=== PATIENT | female | born 1980 | race Caucasian/White ===

== ENCOUNTER → 2022-03-02 14:59 | Outpatient (BNVA) | payer SELFPAY | PROVIDERS: Visit Provider Family Medicine | DX: M17.11 Unilateral primary osteoarthritis, right knee (principal); S89.82XA Other specified injuries of left lower leg, initial encounter; W19.XXXA Unspecified fall, initial encounter | CPT/HCPCS: 73562 ==

== ENCOUNTER 2023-11-23 21:40 | Emergency (ER) | payer SELFPAY ==
[2023-11-23 21:43] VITALS: BP 149/106; PULSE 67; RESP 16; TEMP 36.4; O2SAT 96; BMI 28.2
--- NOTE | 2023-11-23 21:50 | ED_ITS ---
<Statement entered by Az Lucas MD - 11/24/23 05:46> Chart reviewed and discussed with midlevel provider. I agree with the assessment and plan. HPI - Extremity Problem General: Chief complaint: Extremity Injury, Upper Stated complaint: Rt Arm Injury Time Seen by Provider: 11/23/23 21:50 History of Present Illness: 43-year-old female comes in today with i njury to the right wrist. Patient reports that she fell forward and caught herself when she tripped over her cat. Patient reports pain to the anterior wrist with minimal movement due to pain. Cap refill and sensation is normal distally. Patient has normal range of motion of the digits. Review of Systems General: Reports: 10 or more systems reviewed and unremarkable except in HPI and below PFSH ED PFSH: Family History (Updated 03/02/22 @ 14:11 by Nereida Garcia LPN) Family/Other Cancer Maternal aunt--breast Family/Other Cancer Paternal side--colon Denies family history of Diabetes CAD (coronary artery disease) Clotting disorder Dementia Hyperlipidemia Psychiatric illness Chronic kidney disease (CKD) Anesthesia complication Bleeding disorder Lung disease Hypertension Stroke Social History (Updated 03/02/22 @ 14:26 by Julio Chandra MD) Smoking and tobacco/nicotine status: current every day tobacco/nicotine user cigarettes Packs smoked per day: 1 Years cigarettes smoked: 25 [ Other cigarette details: 1PPD, 25yrs, ] Alcohol intake: never Substance/Drug Use: never Adopted: No Caregiver/support person: No Lives independently: Yes Household members: spouse and children Marital status: Number of children: 2 Current occupational status: employed Current occupation: Car wash attendent Current gender identity: Female Special aaliyah needs: No Agree to transfusion: Yes Female Reproductive History: Date of last menstrual period: 11/23/23 Para: 2 Physical Exam Const: COMMON NORMALS: alert HENMT: COMMON NORMALS: normocephalic HEAD & SCALP: normocephalic Neck/C-Spine: COMMON NORMALS: full ROM Resp: COMMON NORMALS: normal respiratory effort and clear to auscultation bilaterally AUSCULTATION: clear to auscultation bilaterally Cardio: COMMON NORMALS: regular rate RATE: regular rate GI: COMMON NORMALS: Soft to palpation PALPATION: Yes Soft to palpation Back/Pelvis: COMMON NORMALS: thoracic and lumbar spine normal to inspection Extremity: RIGHT UPPER EXTREMITY: Yes wrist (Decreased range of motion, minimal swelling) Right wrist: Yes inspection, Yes palpation (Mild tenderness), Yes ROM (Increased pain with movement) and Yes neurovascular exam Neuro: SENSORIUM/ORIENTATION: Yes alert Skin: COMMON NORMALS: turgor normal GENERAL SKIN EXAM: turgor normal Course Vital Signs: Vital signs: Vital Signs Temperature 97.6 F 11/23/23 21:43 Pulse Rate 67 11/23/23 21:43 Respiratory Rate 16 11/23/23 21:43 Blood Pressure 149/106 11/23/23 21:43 Pulse Oximetry 96 11/23/23 21:43 Oxygen Delivery Me thod Room Air 11/23/23 21:43 MDM - Extremity (Nontraumatic) Medical Decision Making 43-year-old female comes in today with complaints of right wrist pain after falling. On exam patient has some tenderness and decreased range of motion of the right wrist due to pain. Minimal swelling. Distal cap refill and sensation is intact. Differential includes fracture, sprain, dislocation. X-ray noted no acute fractures or subluxations of the elbow, wrist noted no acute fractures but with negative ulnar variance with an apparent anterior subluxation of the lunate. I reviewed this with Dr. Lucas, attending ER physician, he reviewed the x-rays and agreeed with splinting and following up with orthopedics. Reviewed this with patient who agreed with plan. Lab Data Radiology Impressions Elbow X-Ray 11/23/23 21:53 IMPRESSION: No acute fractures or subluxations. Wrist X-Ray 11/23/23 21:53 IMPRESSION: No acute fractures. Negative ulnar variance with apparent anterior subluxation of the lunate. All radiology interpretation(s) finalized by discharge Discharge Plan Discharge Patient Disposition: Home Clinical Impression: Sprain of right wrist Qualifiers: Encounter type: initial encounter Qualified Code(s): S63.501A - Unspecified sprain of right wrist, initial encounter Condition: Stable Prescriptions: No Action Vicks Nyquil Nighttime Relief 6.25-15-325 mg/15 mL liquid PO bupropion HCl [Wellbutrin XL] 300 mg tablet extended release 24 hr 300 mg PO QAM Qty: 30 0RF Rx Instructions: 1/2 tablet for 5 days then full tablet meloxicam 7.5 mg tablet 7.5 mg PO DAILY Qty: 90 1RF Discharge Orders: Discharge ED (Routine); Ordered 11/23/23 Ordered By: Juan José Cadena Discharge Diet: Usual diet Discharge Activity: Increase activity as tolerated Patient Instructions: Sprain (ED) Activity Restrictions/Additional Instructions: Keep splint clean and dry. Limit activity to the extremity. Use acetaminophen and ibuprofen to help with pain. Use ice packs for further pain relief. Follow-up with orthopedics office for further evaluation and treatment. Case management should contact you regarding follow-up appointment. Coding Level of Care Code ED [employer] for [employer] [place]
--- NOTE | 2023-11-23 21:53 | XRR_ITS ---
PROCEDURE INFORMATION: Exam: XR Right Elbow Exam date and time: 11/23/2023 10:20 PM Age: 43 years old Clinical indication: Injury or trauma; Fall; Other: Pain TECHNIQUE: Imaging protocol: Radiologic exam of the right elbow. Views: 3 or more views. COMPARISON: No relevant prior studies available. FINDINGS: Bones/joints: No acute fractures or subluxations. Soft tissues: Normal. XR/XR elbow RT min 3V* [id number] IMPRESSION: No acute fractures or subluxations.
--- NOTE | 2023-11-23 21:53 | XRR_ITS ---
PROCEDURE INFORMATION: Exam: XR Right Wrist Exam date and time: 11/23/2023 10:23 PM Age: 43 years old Clinical indication: Injury or trauma; Fall; Dislocation; Severity not specified; Wrist; Right; Injury date: 11/22; Additional info: Injury, fall, foosh, anterior deformity of RT wrist TECHNIQUE: Imaging protocol: Radiologic exam of the right wrist. Views: 3 or more views. COMPARISON: CR ([facility], ) 11/23/2023 10:20 PM FINDINGS: Bones/joints: No acute fractures. Negative ulnar variance with apparent anterior subluxation of the lunate. Soft tissues: Mild soft tissue swelling. XR/XR wrist RT min 3V* [id number] IMPRESSION: No acute fractures. Negative ulnar variance with apparent anterior subluxation of the lunate.
[2023-11-23] MEDS: HYDROcodone-acetaminophen 7.5-325 mg Tablet 1 TAB PO (23:46)
[2023-11-23 23:59] VITALS: BP 149/106; PULSE 67; RESP 16; TEMP 36.4; O2SAT 96
--- NOTE | 2023-11-24 13:25 | DCPLANNER ---
messaged ortho for er f/u
== END 2023-11-24 00:01 | disposition home or self-care (01) ==
PROVIDERS: Emergency Provider Nurse Practitioner Family
DX: S63.501A Unspecified sprain of right wrist, initial encounter (principal); F17.210 Nicotine dependence, cigarettes, uncomplicated; W01.0XXA Fall on same level from slipping, tripping and stumbling without subsequent striking against object, initial encounter
CPT/HCPCS: 29125; 73080; 73110; 99283